=== PATIENT | male | born 1950 | race Caucasian/White ===

== ENCOUNTER 2016-05-20 16:03 | Inpatient (IN) | payer MEDICARE, OTHER ==
--- NOTE | ~2016-05-20 | EGD ---
EGD REPORT [facility] [address] [place] [address] NAME: MINA BOLIVAR SR : 49 STATUS : ADM IN PAT#: [id number] AGE: 66 ADM/REG DATE : 05/20/16 MR#: [id number] REPORT SERV DATE: 05/23/16 DICTATED BY: MAHAMED BENITO DATE: 05/23/16 REPORT STATUS : Draft TRANSCRIBED BY: [facility] DATE: 05/23/16 Endoscopy Center Patient Name: Mina Bolivar Date of : 1950 Attending MD: MAHAMED BENITO MD Procedure Date No Time: 05/23/2016 Procedure: Upper GI endoscopy Indications: Iron deficiency anemia, Melena Referring MD: Johnny Gonzalez Medicines: Propofol total dose 150 mg IV Complications: No immediate complications. Procedure: Pre-Anesthesia Assessment: - ASA Grade Assessment: IV - A patient with severe systemic disease that is a constant threat to life. After obtaining informed consent, the endoscope was passed under direct vision. Throughout the procedure, the patient's blood pressure, pulse, and oxygen saturations were monitored continuously. The GIF [id number] was introduced through the mouth, and advanced to the third part of duodenum. The upper GI endoscopy was accomplished with ease. Findings: The ampulla, duodenal bulb, first part of the duodenum and 2nd part of the duodenum were normal. Scattered mild inflammation characterized by erythema was found in the gastric body and in the gastric antrum. Biopsy with a cold forceps was performed for histology. The cardia and gastric fundus were normal. LA Grade A (one or more mucosal breaks less than 5 mm, not extending between tops of 2 mucosal folds) esophagitis was found 38 cm from the incisors. Biopsy with a cold forceps was performed for histology. The cricopharyngeus, upper third of the esophagus, middle third of the esophagus and lower third of the esophagus were normal. Impression: - Normal ampulla, duodenal bulb, first part of the duodenum and 2nd part of the duodenum. - Gastritis. Biopsied. - Normal cardia and gastric fundus. - LA Grade A reflux esophagitis. Biopsied. - Normal cricopharyngeus, upper third of esophagus, middle third of esophagus and lower third of esophagus. Recommendation: - [facility]. - Regular diet. EGD REPORT [address] [address] NAME: MINA BOLIVAR SR : [birth year] STATUS : ADM IN [facility]#: [id number] AGE: 66 ADM/REG DATE : 05/20/16 MR#: [id number] REPORT SERV DATE: 05/23/16 DICTATED BY: MAHAMED BENITO DATE: 05/23/16 REPORT STATUS : Draft TRANSCRIBED BY: [employer] SERVICES DATE: 05/23/16 - Continue present medications. Procedure Code(s): --- Professional --- 27715, Esophagogastroduodenoscopy, flexible, transoral; with biopsy, single or multiple Diagnosis Code(s): --- Professional --- K29.70, Gastritis, unspecified, without bleeding K21.0, Gastro-esophageal reflux disease with esophagitis D50.9, Iron deficiency anemia, unspecified K92.1, Melena CPT copyright 2013 [employer]. All rights reserved. The codes documented in this report are preliminary and upon yarding and folding machine operator review may be revised to meet current compliance requirements. Mahamed Benito MD MAHAMED BENITO MD 05/23/2016 1:28 PM This report has been signed electronically. Number of Addenda: 0 Note Initiated On: 05/23/2016 12:55 PM Scope Withdrawal Time 0 hours 0 minutes 0 seconds
--- NOTE | ~2016-05-20 | DS ---
Discharge Summary [place] [address] [place]. [address] NAME: MINA POSEY SR : 49 STATUS : DIS IN PAT#: [id number] AGE: 66 ADM/REG DATE : 05/20/16 MR#: [id number] REPORT SERV DATE: 06/02/16 DICTATED BY: TERRELL TRUONG DATE: 06/01/16 REPORT STATUS : Draft TRANSCRIBED BY: SHAKIR DATE: 06/01/16 Data Collection from hospitalization DISCHARGE DIAGNOSES: 1. Encephalopathy. 2. Chronic kidney disease - now end-stage renal disease. 3. Failed renal transplant. 4. Peripheral vascular disease, status post bilateral below-knee amputation. 5. Gastrointestinal bleed. 6. Gastritis. 7. Esophagitis. 8. Anemia. 9. Infected penile implant. 10.Recurrent urinary tract infections. 11.Hypertension. 12.Diabetes mellitus. 13.Hypothyroidism. 14.Paroxysmal atrial fibrillation. 15.Obstructive sleep apnea. 16.Gout. 17.Reflux. 18.Obstructive coronary artery disease. 19.History of positive Clostridium difficile colitis during his last hospitalization. CONSULTATIONS: Ziggy Obrien M.D. PROCEDURES PERFORMED: 1. Upper GI endoscopy on 05/23/2016. 2. Colonoscopy on 05/23/2016. 3. CT scan of the brain without contrast on 05/20/2016. PATHOLOGY: Gastric antrum and body "inflammation" biopsies - antral body-type mucosa showing mild chronic gastritis. No H. pylori seen on routine stains. Esophagus "esophagitis" biopsies - squamocolumnar mucosa showing mild active inflammation. No intestinal metaplasia or dysplasia or eosinophilia seen. MEDICATIONS: Zyloprim 100 mg twice a day, Cordarone 200 mg with breakfast and supper, aspirin 81 mg with lunch, Coreg 3.125 mg with breakfast and supper, Colace 100 mg twice a day, vitamin D 50,000 units every 14 days, Ferrex 150 mg at bedtime, Proscar 5 mg daily, Xalatan 0.005% one drop at bedtime, Synthroid 137 mcg before breakfast, Centrum tablets one tablet daily, CellCept 1000 mg with lunch, Prilosec 20 mg twice a day, Zofran 4 mg every four hours as needed, Percocet 5/325 one to two tablets every four hours as needed, Protonix 40 mg twice a day, Pravachol 40 mg after supper, prednisone 7.5 mg daily, sodium bicarbonate 1300 mg with breakfast and supper, Prograf 1 mg with breakfast and supper, Flomax 0.4 mg with breakfast and supper, and Jantoven 4 mg at 6:00 p.m. CONDITION AT DISCHARGE: Stable. Discharge Summary [facility] [address] [place] [address] NAME: MINA POSEY SR : [birth year] STATUS : DIS IN PAT#: [id number] AGE: 66 ADM/REG DATE : 05/20/16 MR#: [id number] REPORT SERV DATE: 06/02/16 DICTATED BY: TERRELL TRUONG DATE: 06/01/16 REPORT STATUS : Draft TRANSCRIBED BY: SHAKIR DATE: 06/01/16 DISPOSITION: The patient was discharged home to be followed by home health care on a renal diet with activities as instructed. He would follow up for hemodialysis on 05/29/2016. 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 He was recently hospitalized here at [facility] in early April with recurrent urinary tract infections. He has been admitted in favor of antibiotic coverage and further workup. He was subsequently found to have an infected penile prosthetic mechanism, which was subsequently removed with surgical intervention. Postoperatively, he continued to recover and maintain a reasonable creatinine. He was transferred to [facility] for rehabilitation services and strengthening. He returned on the day of this admission via EMS with altered mentation. He was recently initiated on hemodialysis through a left upper extremity access. On 05/12/2016, his creatinine was 3.7. At the time of discharge, he was nonuremic. He was initiated on dialysis 05/17/2016 for anasarca and uremia. He was treated daily until 05/19/2016 with plans for further treatment on Sunday of the following week. Recent medical history was gathered through a discussion with his spouse, who was present during the emergency department evaluation. It appeared through conversations with her that the patient had recently had pain medication which he does not usually take, this provided some level of altered mentation according to her. He recently also had an attempt at insertion of a Alcala catheter that was removed subsequently shortly thereafter. His last hemodialysis was on the day prior to this admission on 05/19/2016. He appeared to be reasonably volume stable, and after a dose of Narcan, appeared more awake and alert. Hemoglobin had fallen two points, but the patient did not recall acute blood loss via rectum or other mechanisms of his body. He was admitted to the hospital at this time for further evaluation and treatment. Upon admission, creatinine level was 2.45. Troponin was 0.21. Drug screen was positive for cannabinoids. His current dosing of Coumadin was held. INR level was subtherapeutic at 1.6. Stools were going to be checked for blood. Urinalysis and C and S would be checked. He would be covered with Rocephin. We would avoid Ceftin if possible as this could potentiate Coumadin. He was transfused two units of packed red blood cells. The following day, he had no edema. He had good pain control. He was seen by Dr. Ziggy Obrien. The patient has had two drops in hemoglobin. He had no evidence of active bleeding. He had no throwing up of blood or passing any blood in his stool. He had no black colored stools. He had no nausea or vomiting. He does have a long history of chronic kidney disease and he has uremia. He is on hemodialysis about three times a week. Stools were going to be checked for C. difficile. We would also check his stools for Hemoccult. It was felt that he should undergo an upper endoscopy and colonoscopy to rule out any cause of bleeding or anemia. CT scan of the brain without contrast showed no acute CVA or other acute intracranial pathology. On 05/22/2016, he complained of some swelling. He said in general he did not feel well. Hemodialysis therapy was performed. On 05/23/2016, he was taken to the endoscopic suite by Dr. Ziggy Obrien where he underwent upper GI endoscopy. He had normal ampulla, duodenal bulb, first part of the duodenum and second part of the duodenum. He had gastritis, which was biopsied. He had normal cardia and gastric fundus. LA grade A reflux esophagitis was seen and biopsied. He had normal cricopharyngeus and upper third of the esophagus and middle third of the esophagus and lower third of the esophagus. Colonoscopy was also performed. The rectum, rectosigmoid colon, sigmoid colon, descending colon, splenic flexure, transverse colon, hepatic flexure, ascending colon, cecum at the Discharge Summary [place] [address] [place]. [address] NAME: MINA POSEY SR : 49 STATUS : DIS IN PAT#: [id number] AGE: 66 ADM/REG DATE : 05/20/16 MR#: [id number] REPORT SERV DATE: 06/02/16 DICTATED BY: TERRELL TRUONG DATE: 06/01/16 REPORT STATUS : Draft TRANSCRIBED BY: MODL DATE: 06/01/16 appendiceal orifice and ileocecal valve were normal. Nonbleeding external and internal hemorrhoids were seen. Hemodialysis therapy continued. The next day, he has had some hallucinations, these were improving. He was evaluated by Occupational Therapy. Hemodialysis therapy continued. Discharge planning was performed. On 05/26/2016, he continued to progress. Discharge instructions were given. Due to his improved and stable condition, he was discharged home to be followed by home health care with the above-stated instructions. Information collected by: Guillermina Abreu I submit the above information as my discharge summary. ATA/SHAKIR Terrell Truong M.D. / [id number] CC: MD Johnny Meyer MD Jay Philippose, M.D.
--- NOTE | ~2016-05-20 | EGD ---
EGD REPORT [facility] [address] [address] NAME: MINA BOLIVAR SR : 49 STATUS : ADM IN PAT#: [id number] AGE: 66 ADM/REG DATE : 05/20/16 MR#: [id number] REPORT SERV DATE: 05/23/16 DICTATED BY: MAHAMED BENITO DATE: 05/23/16 REPORT STATUS : Draft [facility]ANS[facility]IBED BY: [facility] DATE: 05/23/16 Endoscopy Center Patient Name: Mina Bolivar Date of : 1950 Attending MD: MAHAMED BENITO MD Procedure Date No Time: 05/23/2016 Procedure: Colonoscopy Indications: Melena, Iron deficiency anemia Referring MD: Johnny Gonzalez Medicines: Propofol total dose 150 mg IV Complications: No immediate complications. Procedure: Pre-Anesthesia Assessment: - ASA Grade Assessment: IV - A patient with severe systemic disease that is a constant threat to life. After I obtained informed consent, the scope was passed under direct vision. Throughout the procedure, the patient's blood pressure, pulse, and oxygen saturations were monitored continuously. The PCF [id number] was introduced through the anus and advanced to the cecum, identified by appendiceal orifice and ileocecal valve. The ileocecal valve was photographed. The quality of the bowel preparation was adequate. Findings: The rectum, recto-sigmoid colon, sigmoid colon, descending colon, splenic flexure, transverse colon, hepatic flexure, ascending colon, cecum, appendiceal orifice and ileocecal valve appeared normal. Non-bleeding external internal hemorrhoids were found, and they were Grade II (internal hemorrhoids that prolapse but reduce spontaneously). Diverticula were found in the recto-sigmoid colon, in the sigmoid colon, in the descending colon and in the ascending colon. Impression: - The rectum, recto-sigmoid colon, sigmoid colon, descending colon, splenic flexure, transverse colon, hepatic flexure, ascending colon, cecum, at the appendiceal orifice and ileocecal valve are normal. - Non-bleeding external internal hemorrhoids. Recommendation: - [facility]. - Regular diet. - Continue present medications. - Return to GI clinic in 2 weeks. Procedure Code(s): --- Professional --- 62855, Colonoscopy, flexible, proximal to splenic EGD REPORT [address] [address] NAME: MINA BOLIVAR SR : [birth year] STATUS : ADM IN [facility]#: [id number] AGE: 66 ADM/REG DATE : 05/20/16 MR#: [id number] REPORT SERV DATE: 05/23/16 DICTATED BY: MAHAMED BENITO DATE: 05/23/16 REPORT STATUS : Draft TRANSCRIBED BY: [employer] SERVICES DATE: 05/23/16 flexure; diagnostic, with or without collection of specimen(s) by brushing or washing, with or without colon decompression (separate procedure) Diagnosis Code(s): --- Professional --- K64.1, Second degree hemorrhoids K64.4, Residual hemorrhoidal skin tags K92.1, Melena D50.9, Iron deficiency anemia, unspecified CPT copyright 2013 [employer] [place] [employer]. All rights reserved. The codes documented in this report are preliminary and upon community service specialist review may be revised to meet current compliance requirements. Mahamed Benito MD MAHAMED BENITO MD 05/23/2016 1:34 PM This report has been signed electronically. Number of Addenda: 0 Note Initiated On: 05/23/2016 1:04 PM Scope Withdrawal Time 0 hours 7 minutes 7 seconds [address] [address]
--- NOTE | ~2016-05-20 | HP ---
History And Physical [facility] [address] [place]. [address] NAME: MINA POSEY SR : 49 STATUS : ADM IN PAT#: [id number] AGE: 66 ADM/REG DATE : 05/20/16 MR#: [id number] REPORT SERV DATE: 05/20/16 DICTATED BY: DATE: REPORT STATUS : Draft TRANSCRIBED BY: MODL DATE: 05/20/16 DATE OF ADMISSION: 05/20/2016 REASON FOR ADMISSION: Altered mentation, questionable GI bleed. HISTORY OF PRESENT ILLNESS: This is a very pleasant 66-year-old male patient with renal pancreas transplant from at [place] in 2002. He was recently hospitalized here in [facility] early April with recurrent urinary tract infections. He was admitted in favor of antibiotic coverage and further workup. He was subsequently found to have an infected penile prosthetic mechanism, which was subsequently removed with surgical intervention. Postoperatively, the patient continued to recover and maintained a reasonable creatinine, was transferred to [facility] for rehabilitation services and strengthening. He returns today via EMS with altered mentation. He has recently initiated hemodialysis through a left upper extremity access. On 05/12/2016, his creatinine was 3.7. At the time of discharge, he was nonuremic. He initiated dialysis on 05/17/2016 for anasarca and uremia. He was treated daily until 05/19/2016 with plans for further treatment on Sunday of next week. Recent medical history is gathered through discussion with his spouse who was present during emergency department evaluation. It appears through conversations with her that the patient has recently had pain medication which he does not usually take. This provided some level of altered mentation according to her report. He recently also had an attempted insertion of Alcala catheter that was removed subsequently shortly thereafter. His last hemodialysis was yesterday on 05/19/2016. He appears to be reasonably volume stable and after dosing of Narcan appears to be more awake and alert. His hemoglobin has fallen two points, but the patient does not recall of acute loss of blood via rectum or other mechanisms of his body. He is awake and alert during evaluation this afternoon. Denies current chest pain. No nausea, vomiting, or diarrhea. PAST MEDICAL HISTORY: Positive for chronic kidney disease stage 4 to 5 with last creatinine prior to dismissal to [facility] on 05/12/2016 was 3.7 with recent onset of uremia and initiation of dialysis by Dr. Yang Church due to uremia and anasarca. History is also positive for kidney and pancreas transplant in 2002; urinary retention previously with infected penile prosthesis, status post excision during his last hospitalization. History also positive for paroxysmal atrial fibrillation, status post ablation; A flutter; pericardial effusion; hypertension ; hypothyroidism; obstructive sleep apnea; gout; right BKA; reflux; diabetes mellitus; iron-deficiency anemia; penile implant as above; and nonobstructive coronary artery disease with last cardiac catheterization multiple years ago. He also has multiple wounds on his left heel and other areas of his body. Positive for C difficile colitis during his last hospitalization. REVIEW OF SYSTEMS: Completed. Please see HPI for pertinent details, completed with the assistance of his who was present during evaluation. FAMILY MEDICAL HISTORY: Noncontributory and not reviewed during this consultation and admission. Active medications and allergies are as follows. History And Physical [address] [address] NAME: MINA POSEY SR : [birth year] STATUS : ADM IN [facility]#: [id number] AGE: 66 ADM/REG DATE : 05/20/16 MR#: [id number] REPORT SERV DATE: 05/20/16 DICTATED BY: DATE: REPORT STATUS : Draft TRANSCRIBED BY: SHAKIR DATE: 05/20/16 ALLERGIES: HE LISTS NO KNOWN MEDICATION ALLERGIES. CURRENT ACTIVE MEDICATIONS: On entry are as follows: Allopurinol 100 mg p.o. b.i.d.; Cordarone 200 mg p.o. daily; ASA 81 mg daily; Bumex 2 mg p.o. t.i.d.; carvedilol 3.125 mg p.o. daily; Ceftin 250 mg p.o. b.i.d. x7 days, initiated on 05/20/2016; Colace 100 mg p.o. b.i.d.; cholecalciferol 2000 units q.14 days; polysaccharide 150 mg p.o. q.h.s.; Proscar 5 mg p.o. daily; NovoLog via sliding scale; Xalatan 1 drop OPH q.h.s.; Synthroid 137 mcg p.o. daily; centrum multivitamin 1 tablet; CellCept 1000 mg p.o. daily; Zofran 4 mg p.o. q.4 hours p.r.n; oxycodone 1 to 2 tablets p.o. q.4 hours p.r.n., last taken on 05/20/2016; Protonix 40 mg p.o. daily; Pravachol 40 mg p.o. q.h.s.; prednisone 7.5 mg p.o. daily; sodium bicarbonate 1300 mg p.o. b.i.d.; Prograf 1 mg p.o. q.h.s.; Flomax 0.4 mg p.o. daily; vancomycin p.o. q.6 days x10, start on 05/12/2016 with dosing undefined; and Jantoven 4 mg p.o. q.h.s. PHYSICAL EXAMINATION: VITAL SIGNS: Blood pressure 117/38, temperature is 98.0, heart rate is 60 beats per minute, and he is 100% on 2 L. GENERAL: He is awake and alert and appropriate during evaluation HEENT: Normocephalic and atraumatic. Normal ocular movements. No scleral icterus or conjunctival pallor is appreciated. NECK: Supple without thyromegaly. No JVD or mass. CHEST: Shows positive S1 and S2. No rubs or gallops. LUNGS: Diminished essentially clear throughout with normal expansion and effort bilaterally. GASTROINTESTINAL: Shows positive bowel sounds in all four quadrants. No appreciable mass or tenderness. GENITOURINARY: Shows a normal examination with no edema or drains nor catheters and intact. EXTREMITIES: Show positive pulses to upper extremities. He has a right BKA and the left lower extremity that shows bandaging to his distal extremity. NEUROLOGIC: He appears to be grossly intact. Nonfocal. SKIN: Warm, dry, and intact visualized surfaces without rash noted. Areas of breakdown on his upper extremities primarily on his left upper extremity and left lower extremity. SPINE AND BACK: Sacral coccyx area and back are not examined as the patient is being placed on his cardiac cath rn during evaluation. LABORATORY DATA: Pertinent laboratories and imaging to this evaluation: Drug serum screen and electrolyte profile. Procalcitonin 0.28, sodium 139, potassium 4.4, chloride 99, CO2 of 30, BUN 27, creatinine 2.45, reflected GFR 26 mL/minute. Calcium 7.2, total protein 5.3, albumin 2.2, alkaline phosphatase 145, ALT and AST are 24 and 63 respectively. [address] 0[address]. [address] of the brain without contrast shows no identified acute infarct area. Lactate 0.9. Drug screen is positive for cannabinoids. Beta-natriuretic peptide 2928.2. Urinalysis: Color is lisa, appearance is cloudy, specific gravity of 1.019, protein of 100 mg/dL, leukocyte esterase is trace, rbc's of 4, wbc's 27, with a rare mucus. Most recent CBC: white blood cell count of 7.6, RBC 7.4, hematocrit 24.1, platelets at 251. IMPRESSION AND PLAN: Renal pancreas transplant in 2002 at [place] with recent hospitalization with recurrent urinary tract infections with penile implant excision, transition to [facility] History And Physical [id number] [place]. [address] NAME: MINA POSEY SR : [birth year] STATUS : ADM IN PAT#: [id number] AGE: 66 ADM/REG DATE : 05/20/16 MR#: [id number] REPORT SERV DATE: 05/20/16 DICTATED BY: DATE: REPORT STATUS : Draft TRANSCRIBED BY: MODL DATE: 05/20/16 Rehabilitation, now presenting to [facility] obtund with possible reaction to p.o. pain medication. The patient has also recently initiated hemodialysis via left upper extremity access for anasarca and uremia. The patient has responded appropriately to initiation of Narcan dosing and is awake and alert. There is a question of a possible gastrointestinal bleed with a hemoglobin that has fallen approximately two points since his previous admission, here which was rather recent. Hold current dosing of Coumadin, although his INR is subtherapeutic at 1.6. We will guaiac his stools x3. See the clinical indication for blood cultures at this time. We will check UA and C and S and cover him with Ceftin as prescribed at [facility] and await culture information for further modification of treatment regarding that 250 mL boluses. He is somewhat hypotensive. We will go ahead and infuse second unit of packed red cells if clinically warranted as he is recently a hemodialysis patient and has difficulty with volume overload and has an elevated BNP, we will be judicious about administration of fluids as well as blood products and do not place this gentleman in further volume overload. Next hemodialysis will be initiated on Sunday of this upcoming week. We will evaluate him via Physical Therapy, Occupational Therapy, trend his troponins, renal ADA diet with sliding scale insulin as above. Consideration placing this patient in return to rehabilitation if clinically warranted as he stabilizes and we will also evaluate the need for placing him in a dialysis clinic. I do not see clinical need for subspecialties at this point. We would consider possibility of Urology if he develops some level of urinary difficulty, and we would also consider Cardiology if troponins do show an uptake in reading. Further modification of treatment plan may be made based on clinical presentation of the patient's laboratory results, further consultation with renal attending. /MODL Esa Sanchez NP / [id number] CC: MD Johnny Meyer MD
--- NOTE | ~2016-05-20 | CN ---
Consultation Report [facility] [address] [place]. [address] NAME: MINA POSEY SR : 49 STATUS : ADM IN [facility]#: [id number] AGE: 66 ADM/REG DATE : 05/20/16 MR#: [id number] REPORT SERV DATE: 05/21/16 DICTATED BY: MAHAMED BENITO DATE: 05/21/16 REPORT STATUS : Draft TRANSCRIBED BY: MODL DATE: 05/21/16 CONSULTATION DATE OF CONSULTATION: REASON FOR CONSULT: Two point drop in hemoglobin, for evaluation. HISTORY OF PRESENT ILLNESS: This is a very pleasant 66-year-old, male who has a history of pancreatic and kidney transplant in 2002 in [place]. The patient was in [facility] in April for urinary tract infection and coverage. 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 Subsequently, he was transferred to a [facility] where he has been since then. Recently, he was found to have a drop in his hemoglobin of about 2 points. No evidence of any active bleeding. No complaints of any throwing up blood or passing any blood in the stools or black colored stools. He does not have any nausea or vomiting. He has a long history of chronic kidney disease, and has uremia and is on hemodialysis about 3 times a week. 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 REVIEW OF SYSTEMS: The patient complains of weakness. He has no stomach pain, nausea, vomiting, diarrhea, or any black stools. FAMILY HISTORY: Noncontributory at this time. ALLERGIES: NONE KNOWN. MEDICATIONS: Current medications allopurinol 100 mg p.o. b.i.d., Cordarone 200 mg p.o. daily, aspirin 81 mg daily, Bumex 2 mg p.o. t.i.d. carvedilol 3.125 mg p.o. daily, Ceftin 250 mg p.o. b.i.d. which was started on 05/20/2016, Colace 100 mg p.o. b.i.d., cholecalciferol 2000 units q.14 days, polysaccharide, Proscar 5 mg p.o. daily, NovoLog sliding scale, Xalatan eye drops, Synthroid 137 mcg p.o. daily, CellCept 1000 mg p.o. daily, Zofran 4 mg p.o. q.4 hours p.r.n., oxycodone 1 to 2 tablets p.o. q.4 hours p.r.n., Protonix 40 mg p.o. daily, Pravachol 40 mg p.o. at bedtime, prednisone 7.5 mg p.o. daily, sodium bicarbonate 1300 mg p.o. b.i.d., Prograf 1 mg p.o. q.h.s., Flomax 0.4 mg p.o. daily, vancomycin q.6 hours x10 days started on 04/22/2016, Jantoven 4 mg p.o. q.h.s. PHYSICAL EXAMINATION: VITAL SIGNS: Temperature is normal. BP is 110/80. Peripheral pulses are well felt. Consultation Report [address] [id number] NAME: MINA POSEY SR : 49 STATUS : ADM IN [facility]#: [id number] AGE: 66 ADM/REG DATE : 05/20/16 MR#: [id number] REPORT SERV DATE: 05/21/16 DICTATED BY: MAHAMED BENITO DATE: 05/21/16 REPORT STATUS : Draft TRANSCRIBED BY: SHAKIR DATE: 05/21/16 NECK: Supple. Trachea is central. Carotids are well felt on both sides. CARDIOVASCULAR SYSTEM: S1 and S2 are heard. LUNGS: Trachea is central. Clear breath sounds are heard. ABDOMEN: Soft. Bowel sounds are heard. Hernial orifices are normal. MATERIALS HANDLER: Higher function cranial nerves and reflexes are normal. EXTREMITIES: He has below-knee amputation on the left side. Peripheral pulses are well felt on the right side. LABORATORY DATA: Lab show a BUN and creatinine to be 27 and 2.45, calcium is 7.2, alkaline phosphatase 145 and ALT and AST 24 and 63, hemoglobin is 7.4, hematocrit of 24.1, platelets are 251. IMPRESSION: 1. Two point drop in hemoglobin and hematocrit with anemia, rule out any active Gastrointestinal bleed. 2. History of Clostridium difficile colitis, currently asymptomatic. 3. Chronic kidney insufficiency or failure, on hemodialysis. 4. Status post kidney and pancreatic transplant. Apparently, the pancreatic transplant is doing well. 5. Coronary artery disease. 6. Diabetes mellitus. 7. Chronic obstructive pulmonary disease. PLAN: We will check his stools for Clostridium difficile. We will also check his stools for Hemoccult, and do an upper endoscopy and colonoscopy to rule out any cause of bleeding or anemia. TAMERA/SHAKIR Mahamed Benito M.D. / [id number] CC: MD Johnny Meyer MD
[2016-05-20 14:58] LABS: BASOPHILS 0.1 %; BASOPHILS ABSOLUTE 0.01 10/3/uL (0.0-0.16); EOSINOPHILS 0.9 %; EOSINOPHILS ABSOLUTE 0.07 10/3/uL (0.0-0.53); ER CBC TAT 0 Hrs 09 Mins; HEMOGLOBIN 7.4 g/dL (13.6-17.8); IMMATURE GRANULOCYTES 4.2 %; IMMATURE GRANULOCYTES ABSOLUTE 0.32 10/3/uL (0.0-0.11); LYMPHOCYTES 12.4 %; LYMPHOCYTES ABSOLUTE 0.94 10/3/uL (0.67-4.30); MEAN CORPUS HGB CONC 30.7 g/dL (32.0-36.0); MEAN CORPUSCULAR HEMOGLOB 26.3 pg (26.0-34.0); MEAN PLATELET VOLUME 9.1 fL (9.2-13.0); MONOCYTES 11.4 %; MONOCYTES ABSOLUTE 0.87 10/3/uL (0.21-1.20); NEUTROPHILS ABSOLUTE 5.39 10/3/uL (2.02-8.40); PLATELET COUNT 251 10/3/uL (150-400); RBC DISTRIBUTION WIDTH 21.2 % (12.0-16.0); RED CELL COUNT 2.81 10/6/uL (4.7-6.1); WHITE BLOOD CELLS 7.6 10/3/uL (4.5-10.5)
[2016-05-20 14:59] LABS: HEMATOCRIT 24.1 % (40.0-51.0); MANUAL DIFF NO %; MEAN CORPUSCULAR VOLUME 85.8 fL (80-100)
[2016-05-20 15:10] LABS: INTERNATIONAL NORMAL RATI 1.6 UNITS (-); PROTIME (NOT ORD) 18.9 SEC (12.0-14.5)
[2016-05-20 15:12] LABS: A/G RATIO 0.7 (0.7-1.9); ACETAMINOPHEN LEVEL (TYLENOL) 8.6 MCG/ML (10.0-20.0); ALBUMIN 2.2 G/DL (3.5-5.0); ALKALINE PHOSPHATASE 145 U/L (45-117); BUN (BLOOD UREA NITROGEN) 27 MG/DL (6-23); CALCIUM, SERUM 7.2 MG/DL (8.5-10.4); CHLORIDE, SERUM 99 MMOL/L (96-112); CO2 (CARBON DIOXIDE) 30 MMOL/L (24-34); CREATININE 2.45 MG/DL (0.70-1.30); GFR AFRICAN AMERICAN 30 ML/MIN (>=60); GFR NON AFRICAN AMERICAN 26 ML/MIN (>=60); GLOBULIN 3.1 G/DL (2.5-4.1); GLUCOSE, SERUM 104 MG/DL (60-99); POTASSIUM, SERUM 4.4 MMOL/L (3.5-5.3); SGOT(AST) 63 U/L (5-40); SGPT(ALT) 24 U/L (5-65); SODIUM, SERUM 139 MMOL/L (135-148); TOTAL BILIRUBIN 0.9 MG/DL (0-1.2); TOTAL PROTEIN 5.3 G/DL (6.0-8.5)
[2016-05-20 15:13] LABS: ALCOHOL < 10 MG/DL (0); SALICYLATE < 1.7 MG/DL (-); TROPONIN I 0.21 NG/ML (<0.05)
[2016-05-20 15:14] LABS: ASCORBIC ACID (UR NOT ORDER) NEG (NEG); BILIRUBIN, URINE NEGATIVE (NEG); ER URINALYSIS TAT 0 Hrs 20 Mins; KETONE, URINE NEGATIVE (NEG); LEUKOCYTE ESTERASE(NOT OR TRACE (NEG); NITRITE (URINE) NEG (NEG); WBC (NOT ORDERED) (RFLEX) 27 (0-5)
[2016-05-20 15:17] LABS: AMPHETAMINES (NOT ORD) NEG (NEG); BARBITURATES (NOT ORDERED NEG (NEG); BENZODIAZEPINES (NOT ORD) NEG (NEG); CANNABINOIDS (THC) POS (NEG); COCAINE (NOT ORDERED) NEG (NEG); OPIATES NEG (NEG); PHENCYCLIDINE(PCP) NEG (NEG); TRICYCLICS NEG (NEG)
[2016-05-20 15:21] LABS: LACTATE 0.9 MMOL/L (0.3-2.4)
[2016-05-20 15:59] LABS: PROCALCITONIN 0.28 ng/mL (<0.5)
[~2016-05-20 16:03] MED LIST: ACET500CAP PO; ADVIL PO; ANDROGEL5 TOP; ASAB PO; AUG875 PO; BENICAR20 PO; BUM2 PO; C1 PO; C5 PO; CARDCD120 PO; CEFAZ1 IV; CEFT2 PO; CELLCEPT2 PO; CELLCEPT5 PO; CENTRUM PO; CENTRUM TAB1 TAB PO; CLEOCIN300 MG PO; CORDARONE PO; COREG3 PO; COREG6 PO; COUMADIN3 MG PO; COZ50 PO; COZAAR100 MG PO; DEMA100 PO; DEMA20 PO; DSS PO; ELIQUIS 2.5 MG2.5 MG PO; ELIQUIS 5 MG TAB5 MG PO; FERREX 150150 MG PO; FLOMAX4 PO; FLORASTOR250 MG PO; JANTOVEN1 MG PO; JANTOVEN3 MG PO; JANTOVEN4 MG; JANTOVEN4 MG PO; L20 PO; LEVOTHYROXIN112 MCG PO; LOP25 PO; LOP50 PO; MICARDIS80 PO; MONODOX100 MG PO; MUCINEX600 MG PO; MULTIPLE VIT PO; NIACIN 500 PO; NORCO1 TA1 PO; NORV25 PO; NORV5 PO; NOVOLOG SC; P10 PO; P5 PO; PCET PO; PEPCID40 MG OR; PRAVACHOL40 MG PO; PREDNISONE2.5 MG PO; PREV30 PO; PRILO PO; PRIN2.5 PO; PRIN5 PO; PROGRAF1 PO; PROMEGA PO; PROSCAR5 PO; PROTONIX PO; SB325 PO; SODBICAR10 PO; SYN112 PO; SYN125 PO; SYNTHROID137 MCG PO; TRAN200 PO; ULTRAM50; VALTREX5 PO; VANCOMYCIN PO; VIMPAT100 MG PO; VIT D2 PO; VITAMIN D2 PO; VITD PO; Vitamin D2 PO; XALAT OPH; Z100 PO; ZOFRAN ODT4 MG PO
[2016-05-20 21:22] LABS: HEMATOCRIT 24.6 % (40.0-51.0); HEMOGLOBIN 7.4 g/dL (13.6-17.8)
[2016-05-21 06:42] LABS: BASOPHILS 0.4 %; BASOPHILS ABSOLUTE 0.02 10/3/uL (0.0-0.16); EOSINOPHILS 2.3 %; EOSINOPHILS ABSOLUTE 0.13 10/3/uL (0.0-0.53); HEMATOCRIT 25.7 % (40.0-51.0); IMMATURE GRANULOCYTES 3.4 %; IMMATURE GRANULOCYTES ABSOLUTE 0.19 10/3/uL (0.0-0.11); LYMPHOCYTES 17.1 %; LYMPHOCYTES ABSOLUTE 0.96 10/3/uL (0.67-4.30); MANUAL DIFF NO %; MEAN CORPUS HGB CONC 31.1 g/dL (32.0-36.0); MEAN CORPUSCULAR VOLUME 86.8 fL (80-100); MONOCYTES 12.9 %; MONOCYTES ABSOLUTE 0.72 10/3/uL (0.21-1.20); NEUTROPHILS 63.9 %; NEUTROPHILS ABSOLUTE 3.58 10/3/uL (2.02-8.40); PLATELET COUNT 239 10/3/uL (150-400); RED CELL COUNT 2.96 10/6/uL (4.7-6.1); WHITE BLOOD CELLS 5.6 10/3/uL (4.5-10.5)
[2016-05-21 06:53] LABS: INTERNATIONAL NORMAL RATI 1.7 UNITS (-); PROTIME (NOT ORD) 19.6 SEC (12.0-14.5)
[2016-05-21 07:10] LABS: ALKALINE PHOSPHATASE 125 U/L (45-117); BUN (BLOOD UREA NITROGEN) 31 MG/DL (6-23); CALCIUM, SERUM 7.3 MG/DL (8.5-10.4); CHLORIDE, SERUM 100 MMOL/L (96-112); CO2 (CARBON DIOXIDE) 29 MMOL/L (24-34); CREATININE 2.87 MG/DL (0.70-1.30); DIRECT BILIRUBIN 0.5 MG/DL (0.0-0.4); GFR AFRICAN AMERICAN 25 ML/MIN (>=60); GFR NON AFRICAN AMERICAN 22 ML/MIN (>=60); GLUCOSE, SERUM 78 MG/DL (60-99); INDIRECT BILIRUBIN(NOT ORDER) 0.3 MG/DL (0.1-0.9); PHOSPHORUS, SERUM 3.4 MG/DL (2.5-4.5); POTASSIUM, SERUM 4.5 MMOL/L (3.5-5.3); SGOT(AST) 68 U/L (5-40); SGPT(ALT) 22 U/L (5-65); SODIUM, SERUM 137 MMOL/L (135-148); TOTAL BILIRUBIN 0.8 MG/DL (0-1.2); TOTAL PROTEIN 5.1 G/DL (6.0-8.5)
[2016-05-21 07:11] LABS: TROPONIN I 0.65 NG/ML (<0.05)
[2016-05-21 11:52] LABS: INTERNATIONAL NORMAL RATI 1.6 UNITS (-); PROTIME (NOT ORD) 19.2 SEC (12.0-14.5)
[2016-05-21 17:00] LABS: HEMATOCRIT 25.7 % (40.0-51.0); HEMOGLOBIN 7.9 g/dL (13.6-17.8)
[2016-05-21 17:04] LABS: INTERNATIONAL NORMAL RATI 1.6 UNITS (-); PROTIME (NOT ORD) 18.6 SEC (12.0-14.5)
[2016-05-22 08:20] LABS: BASOPHILS 0.5 %; BASOPHILS ABSOLUTE 0.03 10/3/uL (0.0-0.16); EOSINOPHILS ABSOLUTE 0.13 10/3/uL (0.0-0.53); HEMOGLOBIN 8.3 g/dL (13.6-17.8); IMMATURE GRANULOCYTES ABSOLUTE 0.13 10/3/uL (0.0-0.11); LYMPHOCYTES 15.5 %; LYMPHOCYTES ABSOLUTE 0.99 10/3/uL (0.67-4.30); MEAN CORPUS HGB CONC 31.9 g/dL (32.0-36.0); MEAN CORPUSCULAR VOLUME 84.7 fL (80-100); MEAN PLATELET VOLUME 8.6 fL (9.2-13.0); MONOCYTES 11.9 %; MONOCYTES ABSOLUTE 0.76 10/3/uL (0.21-1.20); NEUTROPHILS 68.1 %; NEUTROPHILS ABSOLUTE 4.35 10/3/uL (2.02-8.40); PLATELET COUNT 242 10/3/uL (150-400); RBC DISTRIBUTION WIDTH 20.4 % (12.0-16.0); RED CELL COUNT 3.07 10/6/uL (4.7-6.1); WHITE BLOOD CELLS 6.4 10/3/uL (4.5-10.5)
[2016-05-22 08:21] LABS: MANUAL DIFF NO %
[2016-05-22 08:26] LABS: INTERNATIONAL NORMAL RATI 1.5 UNITS (-); PARTIAL THROMBO TIME 35.5 SEC (22.5-37.2); PROTIME (NOT ORD) 18.3 SEC (12.0-14.5)
[2016-05-22 08:40] LABS: CALCIUM, SERUM 7.1 MG/DL (8.5-10.4); CHLORIDE, SERUM 99 MMOL/L (96-112); CO2 (CARBON DIOXIDE) 29 MMOL/L (24-34); GFR AFRICAN AMERICAN 19 ML/MIN (>=60); GFR NON AFRICAN AMERICAN 16 ML/MIN (>=60); GLUCOSE, SERUM 82 MG/DL (60-99); PHOSPHORUS, SERUM 3.7 MG/DL (2.5-4.5); POTASSIUM, SERUM 4.3 MMOL/L (3.5-5.3); SODIUM, SERUM 137 MMOL/L (135-148)
[2016-05-22 08:41] LABS: BUN (BLOOD UREA NITROGEN) 41 MG/DL (6-23); CREATININE 3.65 MG/DL (0.70-1.30)
[2016-05-22 16:19] LABS: HEMATOCRIT 27.1 % (40.0-51.0)
[2016-05-23 05:41] LABS: BASOPHILS 0.7 %; BASOPHILS ABSOLUTE 0.04 10/3/uL (0.0-0.16); EOSINOPHILS 1.8 %; EOSINOPHILS ABSOLUTE 0.11 10/3/uL (0.0-0.53); HEMATOCRIT 26.3 % (40.0-51.0); HEMOGLOBIN 8.4 g/dL (13.6-17.8); IMMATURE GRANULOCYTES 2.9 %; IMMATURE GRANULOCYTES ABSOLUTE 0.18 10/3/uL (0.0-0.11); LYMPHOCYTES 17.6 %; LYMPHOCYTES ABSOLUTE 1.08 10/3/uL (0.67-4.30); MEAN CORPUS HGB CONC 31.9 g/dL (32.0-36.0); MEAN CORPUSCULAR HEMOGLOB 27.1 pg (26.0-34.0); MEAN CORPUSCULAR VOLUME 84.8 fL (80-100); MEAN PLATELET VOLUME 9.2 fL (9.2-13.0); MONOCYTES 11.7 %; MONOCYTES ABSOLUTE 0.72 10/3/uL (0.21-1.20); NEUTROPHILS 65.3 %; NEUTROPHILS ABSOLUTE 4.02 10/3/uL (2.02-8.40); PLATELET COUNT 270 10/3/uL (150-400); RBC DISTRIBUTION WIDTH 20.6 % (12.0-16.0); WHITE BLOOD CELLS 6.2 10/3/uL (4.5-10.5)
[2016-05-23 05:42] LABS: MANUAL DIFF NO %
[2016-05-23 05:57] LABS: ALBUMIN 2.1 G/DL (3.5-5.0); CALCIUM, SERUM 7.3 MG/DL (8.5-10.4); CHLORIDE, SERUM 105 MMOL/L (96-112); CO2 (CARBON DIOXIDE) 26 MMOL/L (24-34); GLUCOSE, SERUM 67 MG/DL (60-99); POTASSIUM, SERUM 4.1 MMOL/L (3.5-5.3); SODIUM, SERUM 143 MMOL/L (135-148)
[2016-05-23 05:59] LABS: BUN (BLOOD UREA NITROGEN) 25 MG/DL (6-23); CREATININE 2.87 MG/DL (0.70-1.30); GFR AFRICAN AMERICAN 25 ML/MIN (>=60); GFR NON AFRICAN AMERICAN 22 ML/MIN (>=60); PHOSPHORUS, SERUM 2.7 MG/DL (2.5-4.5)
[2016-05-23 08:50] LABS: HEPATITIS B SURFACE ANTIGEN NON-REACTIVE (NON-REACT)
[2016-05-23 10:13] LABS: HEPATITIS C ANTIBODY NON-REACTIVE (NON-REACT)
[2016-05-23 10:14] LABS: HEPATITIS B CORE AB IGM NON-REACTIVE (NON-REAC); HIV COMBO NON-REACTIVE (NON REAC)
[2016-05-23 10:15] LABS: HEP A ANTIBODY IGM NON-REACTIVE (NON-REACT)
[2016-05-24 05:55] LABS: BASOPHILS 0.8 %; BASOPHILS ABSOLUTE 0.04 10/3/uL (0.0-0.16); EOSINOPHILS 1.9 %; HEMATOCRIT 27.6 % (40.0-51.0); HEMOGLOBIN 8.8 g/dL (13.6-17.8); IMMATURE GRANULOCYTES 3.4 %; IMMATURE GRANULOCYTES ABSOLUTE 0.18 10/3/uL (0.0-0.11); LYMPHOCYTES 19.5 %; LYMPHOCYTES ABSOLUTE 1.04 10/3/uL (0.67-4.30); MEAN CORPUS HGB CONC 31.9 g/dL (32.0-36.0); MEAN CORPUSCULAR HEMOGLOB 27.2 pg (26.0-34.0); MEAN CORPUSCULAR VOLUME 85.4 fL (80-100); MEAN PLATELET VOLUME 8.9 fL (9.2-13.0); MONOCYTES 11.8 %; MONOCYTES ABSOLUTE 0.63 10/3/uL (0.21-1.20); NEUTROPHILS 62.6 %; NEUTROPHILS ABSOLUTE 3.34 10/3/uL (2.02-8.40); PLATELET COUNT 257 10/3/uL (150-400); RBC DISTRIBUTION WIDTH 20.6 % (12.0-16.0); RED CELL COUNT 3.23 10/6/uL (4.7-6.1); WHITE BLOOD CELLS 5.3 10/3/uL (4.5-10.5)
[2016-05-24 05:56] LABS: MANUAL DIFF NO %
[2016-05-24 06:02] LABS: INTERNATIONAL NORMAL RATI 1.7 UNITS (-); PROTIME (NOT ORD) 19.7 SEC (12.0-14.5)
[2016-05-24 06:12] LABS: CALCIUM, SERUM 7.5 MG/DL (8.5-10.4); CHLORIDE, SERUM 105 MMOL/L (96-112); CO2 (CARBON DIOXIDE) 28 MMOL/L (24-34); CREATININE 2.72 MG/DL (0.70-1.30); GFR AFRICAN AMERICAN 27 ML/MIN (>=60); GFR NON AFRICAN AMERICAN 23 ML/MIN (>=60); GLUCOSE, SERUM 74 MG/DL (60-99); PHOSPHORUS, SERUM 2.3 MG/DL (2.5-4.5); POTASSIUM, SERUM 3.8 MMOL/L (3.5-5.3); SODIUM, SERUM 144 MMOL/L (135-148)
[2016-05-24 06:13] LABS: ALBUMIN 2.6 G/DL (3.5-5.0); BUN (BLOOD UREA NITROGEN) 18 MG/DL (6-23)
[2016-05-24 20:17] LABS: CALCIUM, SERUM 7.1 MG/DL (8.5-10.4); CHLORIDE, SERUM 102 MMOL/L (96-112); CO2 (CARBON DIOXIDE) 30 MMOL/L (24-34); CREATININE 2.29 MG/DL (0.70-1.30); GFR AFRICAN AMERICAN 33 ML/MIN (>=60); GFR NON AFRICAN AMERICAN 28 ML/MIN (>=60); POTASSIUM, SERUM 3.9 MMOL/L (3.5-5.3); SODIUM, SERUM 140 MMOL/L (135-148)
[2016-05-24 20:18] LABS: BUN (BLOOD UREA NITROGEN) 10 MG/DL (6-23); GLUCOSE, SERUM 120 MG/DL (60-99)
[2016-05-25 08:08] LABS: INTERNATIONAL NORMAL RATI 1.7 UNITS (-); PROTIME (NOT ORD) 20.2 SEC (12.0-14.5)
[2016-05-25 08:13] LABS: BUN (BLOOD UREA NITROGEN) 13 MG/DL (6-23); CALCIUM, SERUM 7.5 MG/DL (8.5-10.4); CHLORIDE, SERUM 102 MMOL/L (96-112); CO2 (CARBON DIOXIDE) 29 MMOL/L (24-34); GFR AFRICAN AMERICAN 25 ML/MIN (>=60); GFR NON AFRICAN AMERICAN 21 ML/MIN (>=60); GLUCOSE, SERUM 96 MG/DL (60-99); POTASSIUM, SERUM 3.8 MMOL/L (3.5-5.3); SODIUM, SERUM 140 MMOL/L (135-148)
[2016-05-26 09:03] LABS: BASOPHILS 0.1 %; BASOPHILS ABSOLUTE 0.01 10/3/uL (0.0-0.16); EOSINOPHILS ABSOLUTE 0.07 10/3/uL (0.0-0.53); HEMATOCRIT 27.8 % (40.0-51.0); HEMOGLOBIN 8.9 g/dL (13.6-17.8); IMMATURE GRANULOCYTES 1.2 %; IMMATURE GRANULOCYTES ABSOLUTE 0.08 10/3/uL (0.0-0.11); LYMPHOCYTES 19.5 %; LYMPHOCYTES ABSOLUTE 1.32 10/3/uL (0.67-4.30); MEAN CORPUSCULAR HEMOGLOB 26.9 pg (26.0-34.0); MEAN PLATELET VOLUME 8.7 fL (9.2-13.0); MONOCYTES 7.5 %; MONOCYTES ABSOLUTE 0.51 10/3/uL (0.21-1.20); NEUTROPHILS 70.7 %; NEUTROPHILS ABSOLUTE 4.79 10/3/uL (2.02-8.40); PLATELET COUNT 210 10/3/uL (150-400); RBC DISTRIBUTION WIDTH 21.1 % (12.0-16.0); RED CELL COUNT 3.31 10/6/uL (4.7-6.1); WHITE BLOOD CELLS 6.8 10/3/uL (4.5-10.5)
[2016-05-26 09:06] LABS: MANUAL DIFF NO %
[2016-05-26 09:13] LABS: ALBUMIN 2.2 G/DL (3.5-5.0); CALCIUM, SERUM 7.4 MG/DL (8.5-10.4); CHLORIDE, SERUM 100 MMOL/L (96-112); CO2 (CARBON DIOXIDE) 27 MMOL/L (24-34); GFR AFRICAN AMERICAN 18 ML/MIN (>=60); GFR NON AFRICAN AMERICAN 16 ML/MIN (>=60); GLUCOSE, SERUM 105 MG/DL (60-99); PHOSPHORUS, SERUM 2.9 MG/DL (2.5-4.5); SODIUM, SERUM 138 MMOL/L (135-148)
[2016-05-26 09:14] LABS: BUN (BLOOD UREA NITROGEN) 18 MG/DL (6-23); CREATININE 3.75 MG/DL (0.70-1.30)
[2016-05-26 09:51] LABS: INTERNATIONAL NORMAL RATI 1.7 UNITS (-); PROTIME (NOT ORD) 20.1 SEC (12.0-14.5)
[2016-05-26] MEDS ORDERED: Z100 PO (15:11)
[2016-05-26] MEDS ORDERED: PRILO PO (15:12)
[2016-05-26] MEDS ORDERED: PROSCAR5 PO (15:12)
[2016-07-27] MEDS ORDERED: LEVOTHYROXIN150 MCG PO (15:43)
[2016-11-01] MEDS ORDERED: L40 PO (13:02)
== END 2016-05-26 16:22 | disposition home health service (06) | DRG 377 ==
LOC: ER 16:03 → 2SO 16:13
PROVIDERS: Emergency Medicine; Internal Medicine Gastroenterology; Internal Medicine Nephrology; Nurse Practitioner; Registered Nurse
PROC: 30233N1 Transfusion of Nonautologous Red Blood Cells into Peripheral Vein, Percutaneous Approach (ICD-10-PCS; 2016-05-20)
PROC: 0DB28ZX Excision of Middle Esophagus, Via Natural or Artificial Opening Endoscopic, Diagnostic (ICD-10-PCS; 2016-05-23)
PROC: 0DJD8ZZ Inspection of Lower Intestinal Tract, Via Natural or Artificial Opening Endoscopic (ICD-10-PCS; 2016-05-23)
PROC: 5A1D60Z (ICD-10-PCS; 2016-05-23)
PROC: 0DB68ZX Excision of Stomach, Via Natural or Artificial Opening Endoscopic, Diagnostic (ICD-10-PCS; principal; 2016-05-23 12:58)
PROC: 0DB58ZX Excision of Esophagus, Via Natural or Artificial Opening Endoscopic, Diagnostic (ICD-10-PCS; 2016-05-23 12:58)
DX: K92.2 Gastrointestinal hemorrhage, unspecified (principal); N18.6 End stage renal disease; G93.40 Encephalopathy, unspecified; T86.12 Kidney transplant failure; Z94.83 Pancreas transplant status; I12.0 Hypertensive chronic kidney disease with stage 5 chronic kidney disease or end stage renal disease; E11.22 Type 2 diabetes mellitus with diabetic chronic kidney disease; I48.0 Paroxysmal atrial fibrillation; I48.92 Unspecified atrial flutter; R55 Syncope and collapse; N39.0 Urinary tract infection, site not specified; Z94.0 Kidney transplant status; K92.1 Melena; R44.1 Visual hallucinations; F41.9 Anxiety disorder, unspecified; K29.70 Gastritis, unspecified, without bleeding; K64.0 First degree hemorrhoids; D50.9 Iron deficiency anemia, unspecified; E78.00 Pure hypercholesterolemia, unspecified; K21.9 Gastro-esophageal reflux disease without esophagitis; D64.9 Anemia, unspecified; E03.9 Hypothyroidism, unspecified; G47.33 Obstructive sleep apnea (adult) (pediatric); M10.9 Gout, unspecified; L89.629 Pressure ulcer of left heel, unspecified stage; Z99.2 Dependence on renal dialysis; Z89.511 Acquired absence of right leg below knee
CPT/HCPCS: 36415; 36430; 70450; 71010; 80048; 80053; 80069; 80074; 80076; 80197; 80305; 80307; 81001; 82272; 82330; 82962; 83605; 83735; 83880; 84145; 84484; 85014; 85018; 85025; 85610; 85730; 86850; 86900; 86901; 86920; 87040; 87086; 87389; 87493; 87493-59; 88305; 93005; 96374; 97110-GP; 97116-GP; 97162-GP; 97166-GO; 99291; A9270-GY; C9113; G0257; G8978-CK-GP; G8979-CI-GP; G8987-CL-GO; G8988-CK-GO; J0610; J0885; J2405; J7507; P9016; P9047

== ENCOUNTER 2016-05-31 17:24 | Emergency (ER) | payer MEDICARE, OTHER ==
[2016-05-31 17:16] LABS: ER CBC TAT 0 Hrs 11 Mins; HEMATOCRIT 26.7 % (40.0-51.0); HEMOGLOBIN 8.2 g/dL (13.6-17.8); MEAN CORPUS HGB CONC 30.7 g/dL (32.0-36.0); MEAN CORPUSCULAR HEMOGLOB 26.1 pg (26.0-34.0); MEAN PLATELET VOLUME 10.9 fL (9.2-13.0); NUCLEATED RED BLOOD CELLS 0.2 /100WBC (0-0); PLATELET COUNT 167 10/3/uL (150-400); RBC DISTRIBUTION WIDTH 22.8 % (12.0-16.0); RED CELL COUNT 3.14 10/6/uL (4.7-6.1); WHITE BLOOD CELLS 8.1 10/3/uL (4.5-10.5)
[2016-05-31 17:17] LABS: MANUAL DIFF YES %
[2016-05-31 17:26] LABS: ASCORBIC ACID (UR NOT ORDER) NEG (NEG); BILIRUBIN, URINE NEGATIVE (NEG); ER URINALYSIS TAT 0 Hrs 21 Mins; KETONE, URINE NEGATIVE (NEG); LEUKOCYTE ESTERASE(NOT OR NEG (NEG); NITRITE (URINE) NEG (NEG); WBC (NOT ORDERED) (RFLEX) 2 (0-5)
[2016-05-31 17:33] LABS: INFLUENZA A SCREEN NEGATIVE (NEGATIVE); INFLUENZA B SCREEN NEGATIVE (NEGATIVE)
[2016-05-31 17:36] LABS: BAND NEUTROPHILS 3 %; BASOPHILS 2 %; BASOPHILS ABSOLUTE (CALC) 0.16 10/3/uL (0.0-0.16); ER DIFF TAT 0 Hrs 31 Mins; LYMPHOCYTES 9 %; LYMPHOCYTES ABSOLUTE (CALC) 0.73 10/3/uL (0.67-4.30); MONOCYTES 3 %; MONOCYTES ABSOLUTE (CALC) 0.24 10/3/uL (0.21-1.20); NEUTROPHILS ABSOLUTE (CALC) 6.97 10/3/uL (2.02-8.40); SEGMENTED NEUTROPHIL (0) 83 %; TOTAL NUCLEATED CELLS 100
[2016-05-31 17:38] LABS: POLYCHROMASIA 1+ (2-5/OIF) (0-1/OIF)
[2016-05-31 17:39] LABS: PLATELET ESTIMATE ADQ (ADEQUATE)
[2016-05-31 19:53] LABS: POTASSIUM, SERUM 3.6 MMOL/L (3.5-5.3); SGOT(AST) 45 U/L (5-40); SODIUM, SERUM 141 MMOL/L (135-148)
[2016-05-31 20:06] LABS: A/G RATIO 0.8 (0.7-1.9); ALBUMIN 2.3 G/DL (3.5-5.0); CO2 (CARBON DIOXIDE) 29 MMOL/L (24-34); GLOBULIN 2.8 G/DL (2.5-4.1); GLUCOSE, SERUM 91 MG/DL (60-99); SGPT(ALT) 17 U/L (5-65); TOTAL PROTEIN 5.1 G/DL (6.0-8.5)
[2016-05-31 20:07] LABS: ALKALINE PHOSPHATASE 181 U/L (45-117); BUN (BLOOD UREA NITROGEN) 37 MG/DL (6-23); CALCIUM, SERUM 6.5 MG/DL (8.5-10.4); CHLORIDE, SERUM 103 MMOL/L (96-112); GFR AFRICAN AMERICAN 13 ML/MIN (>=60); GFR NON AFRICAN AMERICAN 12 ML/MIN (>=60); TOTAL BILIRUBIN 1.7 MG/DL (0-1.2)
[2016-07-27] MEDS ORDERED: LEVOTHYROXIN150 MCG PO (15:43)
[2016-11-01] MEDS ORDERED: L40 PO (13:02)
== END 2016-05-31 22:00 | disposition left against medical advice (07) ==
LOC: ER 17:24
PROVIDERS: Emergency Medicine
DX: R53.1 Weakness (principal); Z99.2 Dependence on renal dialysis; J44.9 Chronic obstructive pulmonary disease, unspecified; I12.9 Hypertensive chronic kidney disease with stage 1 through stage 4 chronic kidney disease, or unspecified chronic kidney disease; N18.9 Chronic kidney disease, unspecified; K21.9 Gastro-esophageal reflux disease without esophagitis; E11.9 Type 2 diabetes mellitus without complications; D64.9 Anemia, unspecified; I48.91 Unspecified atrial fibrillation; I25.10 Atherosclerotic heart disease of native coronary artery without angina pectoris; Z88.5 Allergy status to narcotic agent; Z79.82 Long term (current) use of aspirin; Z79.52 Long term (current) use of systemic steroids; Z79.899 Other long term (current) drug therapy
CPT/HCPCS: 71010; 80053; 81001; 83605; 85025; 87040; 87150; 87804; 93005; 99285